=== PATIENT | female | born 1955 ===

== ENCOUNTER → 2022-06-10 | Outpatient (CLI) | payer MEDICARE ==
[2022-06-14 07:08] LABS: HSV-1 DNA Negative (Negative); HSV-2 DNA Negative (Negative)
== END | disposition home or self-care (01) ==
LOC: LAB 18:10 → LAB SHORT 18:10
PROVIDERS: Physician Assistant
DX: B02.9 Zoster without complications (principal)
CPT/HCPCS: 87529; 87798